=== PATIENT | female | born 2000 | race Caucasian/White ===

== ENCOUNTER → 2021-04-18 09:05 | Outpatient (CLI) | payer MEDICAID, SELFPAY ==
[2021-04-18 10:58] LABS: hCG Titer Quant., Serum < 1 mIU/mL (1-3)
[2021-04-24 03:06] LABS: Chlamydia By Nucleic Acid AMP Negative (Negative)
[2021-04-24 13:33] LABS: Gonococcus By Nucleic Acid AMP Positive (Negative)
== END ==
PROVIDERS: Visit Provider Obstetrics & Gynecology
DX: O46.91 Antepartum hemorrhage, unspecified, first trimester (principal); Z3A.00 Weeks of gestation of pregnancy not specified
CPT/HCPCS: 36415; 84702; 87491; 87591

== ENCOUNTER 2021-04-19 23:45 | Emergency (ER) | payer MEDICAID, SELFPAY ==
[2021-04-19 23:53] VITALS: BP 126/78; PULSE 78; RESP 17; TEMP 36.9; O2SAT 98; BMI 24.6
[2021-04-20 00:45] VITALS: RESP 16
[2021-04-20 00:54] LABS: Color, Urine Yellow (Yellow); Glucose, Dipstick Normal (Normal); Ketone-Dipstick Negative (Negative); Leukocyte Esterase-Dipstick 500 /ul (Negative); Mucous, Urine 0 SEEN /hpf (<or=2+); Nitrite-Dipstick Negative (Negative); Occult Blood-Urine 10 /ul (Negative); Protein-Dipstick Negative (Negative); Urine Bilirubin Dipstick Negative (Negative); Urine Clarity Clear (Clear); Urine Urobilinogen Normal (Normal)
[2021-04-20 00:59] LABS: Alcohol, Blood (Medical)-Serum < 3.0 mg/dL
[2021-04-20 01:00] VITALS: RESP 15
[2021-04-20 01:00] LABS: Internal QC Validated? YES +Cl - CLEAR BKGD; Pregnancy, Serum, hCG Quali. NEGATIVE Negative
[2021-04-20 01:03] LABS: Anion Gap 9 (5-15); BUN 14 mg/dL (7-18); BUN/Creat Ratio 17.3 RATIO (10-20); Chloride 106 mmol/L (98-107); Creatinine, Serum 0.81 mg/dL (0.55-1.02); EST Glomerular Filtration Rate 96 mL/min (>60); Est Glom Filt Rate - Afr Amer 116 mL/min (>60); Estimated Creatinine Clearance 96.47 ml/min; Glucose 229 mg/dL (74-106); Potassium 3.7 mmol/L (3.5-5.1); Sodium Level 139 mmol/L (136-145)
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
[2021-04-20 01:07] LABS: Absolute Lymphocyte Count 2.14 X10^3/uL (0.83-4.51); Absolute Neutrophil Count 9.7 X10^3/uL (2.0-7.7); Basophil# 0.05 X10^3/uL; Basophil% 0.4 % (0-1); Eosinophil# 0.14 X10^3/uL; Eosinophils% 1.1 % (0-5); Hemoglobin 12.8 g/dL (12.0-15.0); Lymphocyte # 2.14 X10^3/ul (0.83-4.51); Lymphocyte % 16.6 % (19-41); Mean Corp Hgb Conc 32.8 g/dL (32-36); Mean Corpuscular Hgb 29.4 pg (27.0-32.0); Mean Corpuscular Volume 89.4 fL (81-99); Mean Platelet Vol. 9.9 fl (6.2-12.0); Monocyte# 0.83 X10^3/uL; Monocyte% 6.4 % (0-10); NRBC Flagged by Analyzer 0 % (0-5); Neutrophil # 9.67 X10^3/uL (2.7-7.7); Platelet Count 326 K/mm3 (150-450); RBC Distribution Width CV 13.7 % (11.6-14.6); Red Blood Count 4.36 M/mm3 (4.2-5.4); White Blood Count 12.9 K/mm3 (4.4-11.0)
[2021-04-20 01:13] LABS: White Blood Cells 10-25 SEEN /hpf (0-5)
[2021-04-20 01:14] LABS: Bacteria 1+ /hpf (None Seen); Red Blood Cells-Urine 0-5 SEEN /hpf (0-5); Squamous Epithelial Cells - UA 5-10 SEEN /hpf (5-10)
[2021-04-20 01:20] LABS: Amphetamine Urine VISTA NEGATIVE (<1000 ng/mL); Barbiturate Urine VISTA NEGATIVE (< 200 ng/mL); Benzodiazepine Urine VISTA NEGATIVE (< 200 ng/mL); Cocaine Urine VISTA NEGATIVE (< 300 ng/mL); Ecstacy Urine VISTA NEGATIVE (< 500 ng/mL); Methadone Urine VISTA NEGATIVE (< 300 ng/mL); PCP Urine VISTA NEGATIVE (< 25 ng/mL); THC Urine VISTA NEGATIVE (< 50 ng/mL); Vista UDS pH Range 5
[2021-04-20 02:20] VITALS: PULSE 91; RESP 18; O2SAT 100
[2021-04-20 02:40] VITALS: BP 124/60; PULSE 92; RESP 18; O2SAT 99
== END 2021-04-20 02:41 | disposition home or self-care (01) ==
PROVIDERS: Emergency Provider Emergency Medicine
DX: F32.A Depression, unspecified (principal); F41.9 Anxiety disorder, unspecified; R73.9 Hyperglycemia, unspecified; R73.03 Prediabetes
CPT/HCPCS: 80048; 80307; 81001; 82077; 84703; 85025; 87426; 99283

== ENCOUNTER 2021-06-08 20:23 | Emergency (ER) | payer MEDICAID, SELFPAY ==
[2021-06-08 20:24] VITALS: BP 112/82; PULSE 100; RESP 18; TEMP 36.4; O2SAT 95; BMI 20.5
--- NOTE | 2021-06-08 20:36 | ED.VIS.DYS ---
HPI History of Present Illness Chief Complaint: Asthma Detail of Chief Complaint: Shortness of breath due to asthma Informant: patient Onset/Context/Timing Onset: Days Context: sudden Timing: Intermittent Quality: Negative for Dyspnea on exertion, Orthopnea, PND and Wheezing Current Severity: Mild Maximum Severity: Moderate Worsened by: Nothing Relieved by: Albuterol Associated Symptoms Negative for cough, rhinorrhea, post nasal drip, ear pain, fever, sore throat, subjective, chills, sweats, clear sputum, white sputum, yellow sputum or green sputum Chest Pain: Positive for None Narrative Narrative: Patient is a 20-year-old with history of asthma. She states has been using her rescue inhaler more frequently. She has not been on prednisone the last 3 to 6 months. She denies history of PE or DVT. She denies any upper respiratory symptoms. She denies ill contacts. She quit smoking 3 months ago. She has no other complaints. PE Risk Factors: Negative for Cancer, OCP + Smoking + > 35, Prior DVT or PE, Recent immobilization, Recent surgery and Recent travel Prior similar symptoms: Yes Recent Illness/Hospitalization: No PFSH PFSH Home Medications loratadine [Claritin] 10 mg PO DAILY 04/19/21 [History Last Taken Unknown] metformin 500 mg PO BID #60 tab 04/20/21 [Rx Last Taken Unknown] albuterol sulfate [Ventolin HFA] 2 puff INHALATION Q4H PRN PRN #1 inhaler 06/08/21 [Rx Last Taken Unknown] inhalational spacing device [Space Chamber] #1 ea 06/08/21 [Rx Last Taken Unknown] prednisone 60 mg PO DAILY #12 tablet 06/08/21 [Rx Last Taken Unknown] Allergy/AdvReac Type Severity Reaction Status Date / Time pollen extracts Allergy PT UNSURE Verified 06/08/21 20:26 OF REACTION Social History (Updated 06/08/21 @ 20:[address] Chriss De La Paz MD) household members: significant other Smoking Status: Former smoker substance use type: does not use ROS ROS ED Constitutional Constitutional ED: Denies chills, fever(s), sweats or weight loss Eyes Eyes: Denies blurry vision, change in vision or diplopia ENT ENT ED: Denies ear pain, rhinorrhea or sore throat Cardiovascular Cardiovascular: Denies chest pain, palpitations or racing heartbeat Respiratory/Chest Respiratory/Chest: Denies cough, dyspnea, dyspnea on exertion or sputum Gastrointestinal Gastrointestinal: Denies abdominal pain, diarrhea, nausea or vomiting Genitourinary Genitourinary ED: Denies dysuria Musculoskeletal Musculoskeletal: Denies arthralgias, back pain, myalgias or neck pain Integumentary Denies rash Neurologic Neurologic: Denies headache(s) or weakness Endocrine Endocrinology: Denies polydipsia, polyphagia or polyuria Hematologic/Lymphatic Hematologic/Lymphatic: Denies easy bleeding or easy bruising EXAM Physical Exam Const Vital Signs: 06/08/21 20:24 Temperature 97.6 F L Temperature Source Temporal Pulse Rate 100 Respiratory Rate 18 Blood Pressure 112/82 H Blood Pressure Mean 92 Pulse Ox 95 Oxygen Delivery Method Room Air Positive well nourished and well developed; Negative for obese, cachectic or contractures General Appearance ED: well developed and NAD; Negative for cachectic, contractures or pallor Nutritional Appearance: Negative for cachectic or obese HEENT Reports TM's clear and moist mucous membranes atraumatic; Negative for trauma or tenderness Tympanic Membrane ED: Yes TM's clear Eyes PERRL and EOMs intact bilaterally General Eye ED: Negative for pale conjunctiva or scleral icterus Neck no lymphadenopathy, supple, no meningeal signs and no JVD Resp normal respiratory effort and clear to auscultation bilaterally Cardio regular rate, regular rhythm, S1 normal heart sound, S2 normal heart sound and no murmurs GI non-tender, non-distended and no masses Auscultation: normoactive bowel sounds Palpation: soft Back/Spine normal to inspection Neuro oriented x3, CN's II-XII intact bilaterally and no sensory deficits noted Sensorium / Orientation: alert Motor Exam: strength 5/5 throughout Psych mental status grossly normal Thought Process: normal thought process Skin no wounds General Skin Exam: Negative for jaundice or pallor Lesions: no lesions Rashes: no rashes MDM MDM MDM Narrative Medical decision making narrative: Patient used her inhaler prior to presentation. She is presently wheeze free. 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 Discharge Plan Triage Chief Complaint: Asthma ED Provider: Chriss De La Paz Dx/Rx/DC Orders Clinical Impression: Asthma exacerbation Instructions: ED Asthma, Acute (Adult) Prescriptions: New prednisone 20 MG tablet 60 mg PO DAILY Qty: 12 RF: 0 albuterol sulfate [Ventolin HFA] 1 INHALER inhaler 2 puff inhalation Q4H PRN PRN (Reason: Wheezing) Qty: 1 RF: 0 (DME) Space Chamber Spacer See Rx Instructions .ROUTE .MEDSUPPLY Qty: 1 RF: 0 No Action loratadine [Claritin] 10 mg Tablet 10 mg PO DAILY RF: 0 metformin 500 mg tablet 500 mg PO BID Qty: 60 RF: 0 Primary Care Provider: Care Physician,No Primary Referrals: Care Physician,No Primary [Primary Care Provider] - Doctor,Your [STAFF PHYSICIAN] - 1 Week if not improving Disposition Disposition: Home, Self Care
[2021-06-08] MEDS: predniSONE 20 MG Tablet 60 MG PO (20:49)
[2021-06-08 20:50] VITALS: PULSE 98; RESP 14; O2SAT 96
== END 2021-06-08 20:57 | disposition home or self-care (01) ==
PROVIDERS: Emergency Provider Emergency Medicine; Visit Provider Emergency Medicine
DX: J45.901 Unspecified asthma with (acute) exacerbation (principal); Z87.891 Personal history of nicotine dependence
CPT/HCPCS: 99282